=== PATIENT | female | born 1985 | race Caucasian/White ===

== ENCOUNTER 2017-10-09 04:55 | Emergency (ER) | payer MEDICAID ==
[~2017-10-09] VITALS: Ht 160 cm; Wt 96.2 kg
[~2017-10-09 04:55] MED LIST: CIPRO500 MG PO; CLEOCIN HCL150 MG PO; FLUCONAZOLE100 MG PO; LAC PO; LEVOFLOXACIN500 M1 PO; MULTI-VITAMINS1 TAB PO
[2017-10-09 05:02] VITALS: Ht 160 cm; Wt 96.2 kg
[2017-10-09 05:49] LABS: BASOPHIL % 0.3 % (0-2); PLATELET COUNT 270 x10^3mcL (130-400)
[2017-10-09 05:57] LABS: CALCIUM 8.7 mg/dL (8.5-10.1); CARBON DIOXIDE 24.2 mmol/L (21-32); CHLORIDE SERUM 103 mmol/L (98-107); CREATININE SERUM 0.5 mg/dL (0.6-1.0); GFR1 > 60 mL/min; GLUCOSE SERUM 105 mg/dL (74-106); POTASSIUM SERUM 3.6 mmol/L (3.5-5.1); SODIUM SERUM 136 mmol/L (136-145)
[2017-10-09 06:02] LABS: ALKALINE PHOSPHATASE 87 U/L (46-116); ALT/SGPT 19 U/L (14-59); AMYLASE 58 U/L (25-115); AST/SGOT 14 U/L (15-37); BILIRUBIN TOTAL 0.27 mg/dL (0.20-1.00); LIPASE 137 IU/L (73-393); TOTAL PROTEIN, SERUM 7.1 g/dL (6.4-8.2)
[2017-10-09 07:23] VITALS: BP 97/76
== END 2017-10-09 07:23 | disposition home or self-care (01) ==
LOC: ED 04:55
PROVIDERS: Emergency Medicine
DX: O99.611 Diseases of the digestive system complicating pregnancy, first trimester (principal); Z3A.01 Less than 8 weeks gestation of pregnancy
CPT/HCPCS: J0500; J2405